=== PATIENT | female | born 1990 | race Caucasian/White ===

== ENCOUNTER 2020-01-17 02:08 | Emergency (ER) | payer OTHER ==
[~2020-01-17] VITALS: Ht 172.7 cm; Wt 68.0 kg
[2020-01-17 02:09] VITALS: BP 125/74
== END 2020-01-17 05:18 | disposition home or self-care (01) ==
LOC: EDBD 02:55 → ED 02:55
DX: B81.2 Trichostrongyliasis (principal); Z77.21 Contact with and (suspected) exposure to potentially hazardous body fluids
CPT/HCPCS: 36415; 86803; 87340; 87521; 87806; 99283; G0475